=== PATIENT | male | born 1935 | race Caucasian/White ===

== ENCOUNTER → 2016-06-06 | Outpatient (CLI) | payer MEDICARE, BC ==
[~2016-06-06] MED LIST: AFRIN) (GENASAL15 ML NOSE; ALDACTONE25 MG PO; AMIODARONE HCL200 MG PO; AMOXICILLIN500 MG PO; ARTIFICIAL TEAR15 M1 OPHTH; ASPIR 8181 MG PO; ATROVENT I0.5 MG/2.5 INH; AUGMENTIN875 MG; AUGMENTIN875 MG PO; AVAPRO300 MG PO; B COMPLEX1 EACH PO; BACTRIM DS1 TAB PO; C-PAP; CARAFATE1 GM PO; CATAPRES-TTS0.1 MG TOP; CEFTIN500 MG PO; CLEOCIN HCL300 MG PO; CO Q-10100 MG PO; COREG25 MG PO; COUMADIN2.5 MG PO; COUMADIN5 MG PO; DELTASONE20 MG PO; DULCOLAX10 MG R; DULCOLAX5 MG PO; FLOMAX0.4 MG PO; IMDUR30 MG PO; IPRAT-ALBUT 0.5-3 ML INH; LASIX20 M1 PO; LASIX20 MG PO; LEXAPRO10 MG PO; LIORESAL10 MG FT; MIRALAX PO527 GM/BOT PO; MIRALAX17 GM PO; MUCOMYST 20200 MG/M1 PO; NEXIUM40 MG PO; NITROSTAT0.4 MG SL; NORVASC10 MG FT; NORVASC10 MG PO; NORVASC2.5 MG PO; NUVIGIL50 MG FT; OMEPRAZOLE40 MG PO; OMNICEF 300MG300 MG PO; PRAVACHOL20 MG PO; PROMETH-CODEIN 65 ML PO; PROVENTIL2.5 MG/0.5 INH; QUESTRAN PACKET4 GM FT; RANEXA ER500 MG PO; ROCEPHIN1 G1 IM; STOOL SOFTENER250 MG PO; TYLENOL325 MG FT; TYLENOL325 MG PO; XANAX0.25 M1 FT; ZITHROMAX500 MG PO; ZYLOPRIM100 MG PO
== END | disposition disaster alternative care site (69) ==
LOC: GRAD 12:49
DX: R05 Cough (principal); J47.9 Bronchiectasis, uncomplicated; J98.09 Other diseases of bronchus, not elsewhere classified

== ENCOUNTER → 2016-09-15 | Outpatient (CLI) | payer MEDICARE, BC ==
[2016-09-15 10:04] LABS: CPK 108 IU/L (35-332)
== END | disposition disaster alternative care site (69) ==
LOC: LNHI 09:43
PROVIDERS: Internal Medicine Interventional Cardiology
DX: I25.119 Atherosclerotic heart disease of native coronary artery with unspecified angina pectoris (principal); R07.89 Other chest pain

== ENCOUNTER 2016-09-23 13:45 | Emergency (ER) | payer MEDICARE, BC ==
--- NOTE | ~2016-09-23 | ER ---
PATIENT'S NAME: ALEJANDRA YODER [facility] AGE: 81 Y [address] ROOM: [place] [address] LOCATION: [facility] ADMIT DATE: 09/23/2016 ER/Outpatient Report DISCHARGE DATE: 09/23/2016 FAMILY PHYSICIAN: Amando Bryan MD ATTENDING PHYSICIAN: Armando Dawson Admission date and time are documented in the medical record. I saw the patient at 1400 hours. CHIEF COMPLAINT: Left lower anterior chest pain. HISTORY OF PRESENT ILLNESS: The patient is an 81-year-old male who had onset of left lower anterior chest pain around noon. Took 2 nitros did not help. Pain is worse when he takes a deep breath. Pain was rated about 6/10. He has been fighting bronchitis with a persistent cough for the past 1 to 2 weeks. No fever, chills, or sweats. He has been clammy from [id number]. No nausea, vomiting, or diarrhea. No dizziness, lightheadedness, syncope, or near syncope. No fall or trauma. No headache, eyes, ears, nose, throat, neck, or spine pain. No joint or muscle swelling, redness, or pain. No skin eruptions or rash. No abdominal pain. No back pain. No neck pain. Does have a history of diabetes. No other endocrine problems. Does have some peripheral neuropathy problems. He has had TIA. No psych issues. HOME MEDICATIONS: See attached medication list. ALLERGIES: TETANUS, VICODIN, RESTORIL, KEFLEX, AND LEXAPRO. SOCIAL HISTORY: Nonsmoker, nondrinker. SIGNIFICANT PAST MEDICAL HISTORY: Atherosclerotic ischemic heart disease with coronary artery disease, obstructive sleep apnea, near syncope, abdominal aortic aneurysm, paroxysmal atrial fibrillation, insulin-dependent diabetes mellitus type 2, gout, dyslipidemia, hypertension, myelodysplastic syndrome, peripheral neuropathy, degenerative osteoarthritis, degenerative joint disease, transient ischemic attack, venous insufficiency, benign prostatic hypertrophy, gout, remote tobacco abuse, and anxiety. OPERATIONS: Abdominal aortic aneurysm repair, appendectomy, carpal tunnel release, PATIENT'S NAME: ALEJANDRA YODER [facility] AGE: 81 Y [address] ROOM: [place] [address] LOCATION: [facility] ADMIT DATE: 09/23/2016 ER/Outpatient Report DISCHARGE DATE: 09/23/2016 FAMILY PHYSICIAN: Amando Bryan MD ATTENDING PHYSICIAN: Armando Dawson cholecystectomy, colonoscopy, esophagogastroduodenoscopy, cardiac catheterization with PTCA and stenting, elbow surgery, right femur surgery, bilateral inguinal herniorrhaphies, lumbar laminectomy, pacer placement, tonsillectomy, transurethral resection of the prostate, hand surgery, rectal surgery, and bilateral total hip arthroplasty with bilateral revisions. REVIEW OF SYSTEMS: All systems reviewed by me are negative with the exception of those discussed in history of present illness. PHYSICAL EXAMINATION: VITAL SIGNS: Temperature 97.8, tympanic, pulse 65, regular, respirations 20, blood pressure 131/66, and O2 sat on room air is 95%. HEAD: Normocephalic. EYES, EARS, NOSE, THROAT: Clear. Mucous membranes moist. NECK: No nuchal rigidity. No thyromegaly or cervical adenopathy. No tenderness. SPINE: Nontender. No deformity. LUNGS: Fairly good air flow. No rales, rhonchi, or wheezes. Coarse cough. HEART: Regular. Pulses are palpable. No chest wall or ribcage pain to palpation. ABDOMEN: Soft, nondistended, nontender. Good bowel tones. No organomegaly or abnormal mass palpable. No CVA tenderness. EXTREMITIES: No peripheral edema, cyanosis, or deformity. NEUROVASCULAR: Intact. SKIN: Clear. No skin eruptions or rash. LABORATORY DATA: Chest x-ray shows a slightly increase in heart size with some congestive failure pattern. We will review x-ray with the radiologist. EKG showed sinus rhythm. No acute ST elevation, ischemic change, or arrhythmia. White count was 4500, 72 segs, 5 bands, 10 lymphs, 13 monos, hemoglobin is 11 with hematocrit 32.2, and platelet count is 37,000. PTT is 26, pro-time is 12.6, INR 1.2. Pro-BNP was normal at 368. D-dimer was 4.49. We did go ahead and do a V/Q scan of the lungs, which was negative for PE. CMS was normal except for an elevated chloride of 111, low CO2 content of 18, elevated glucose of 167, elevated BUN of 44, elevated creatinine of 2.4, low GFR of 24. Magnesium was 2.6. CPK x2, 2 hours apart were normal. Mnwpt-pu-gbbs cardiac enzymes x2, 2 hours apart were normal. EMERGENCY DEPARTMENT COURSE: I did give the patient IV normal saline, fluids, and morphine for pain. I did start him on a nitroglycerin drip, which did not show much improvement in his pain. His pain just gradually got away. PATIENT'S NAME: ALEJANDRA YODER [facility] AGE: 81 Y [address] ROOM: [place] [address] LOCATION: [facility] ADMIT DATE: 09/23/2016 ER/Outpatient Report DISCHARGE DATE: 09/23/2016 FAMILY PHYSICIAN: Amando Bryan MD ATTENDING PHYSICIAN: Armando Dawson IMPRESSION: 1. Left lower anterior chest pain, etiology uncertain, but most likely pleuritic or inflammatory. 2. Thrombocytopenia. 3. Myelodysplastic syndrome. 4. Atherosclerotic ischemic heart disease with coronary artery disease. 5. Obstructive sleep apnea. 6. Insulin-dependent diabetes mellitus type 2. 7. Dyslipidemia. 8. Hypertension. 9. Peripheral neuropathy. 10. Venous insufficiency. 11. Remote tobacco abuse. 12. Anxiety. PLAN: The patient dismissed home. Observation. Activity as tolerated. Continue present home medications and care. Heating pad to sore areas of the chest area intermittently as needed. Follow up with personal physician in 3 to 4 days or sooner if needed. Return to the emergency room if needed. Discussion ensued with the patient concerning my findings and recommendations, he understands. ARMANDO DAWSON MD SDS/modl /[id number] d: 09/24/16 0050 t: 09/24/16 0613, OUTPATIENT REPORT
[2016-09-23 14:17] LABS: HEMATOCRIT 32.2 % (33.0-50.0); MCH 33.7 pg (27.0-34.0); MCHC 34.2 gm/dL (32.0-36.5); MCV 98.8 fl (83.0-98.0); MPV 12.8 fl (9.4-12.4); RBC 3.26 M/uL (3.50-5.50); RDW-CV 15.1 % (11.9-14.6); WBC 4.5 K/uL (4.0-11.0)
[2016-09-23 14:18] LABS: PLATELET COUNT 37 K/uL (150-450)
[2016-09-23 14:28] LABS: PROTIME 12.6 SECONDS (9.8-11.4); PTT 26 SECONDS (25-32)
[2016-09-23 14:37] LABS: ALBUMIN 4.7 gm/dL (3.5-5.0); ALK PHOS 80 IU/L (33-138); ALT 26 IU/L (12-78); ANION GAP 15.5 (10.0-19.0); AST 23 IU/L (10-40); BLOOD UREA NITROGEN 44 mg/dL (6-24); CALCIUM 8.7 mg/dL (8.5-10.5); CHLORIDE 111 mMol/L (96-110); CO2 18 mMol/L (22-32); CPK 136 IU/L (35-332); CREATININE 2.4 mg/dL (0.6-1.3); MAGNESIUM 2.6 mg/dL (1.8-2.6); POTASSIUM 4.5 mMol/L (3.7-5.1); SODIUM 140 mMol/L (135-145); TOTAL BILIRUBIN 0.8 mg/dL (0.0-1.5); TOTAL PROTEIN 7.8 g/dL (6.0-8.4)
[2016-09-23 14:59] LABS: ABSOLUTE NEUTROPHIL CT (ANC) 3.5 K/uL (1.4-9.0); BANDED NEUTROPHIL # 0.2 K/uL (0.0-0.1); BANDED NEUTROPHILS % 5 %; LYMPHOCYTE # 0.5 K/uL (0.8-4.0); LYMPHOCYTE % 10 %; MONOCYTE # 0.6 K/uL (0.0-1.0); SEGMENTED NEUTROPHIL # 3.2 K/uL (1.4-9.0); SEGMENTED NEUTROPHIL % 72 %
[2016-09-23 16:23] LABS: CPK 109 IU/L (35-332)
== END 2016-09-23 17:57 | disposition disaster alternative care site (69) ==
LOC: GMED 13:45
PROVIDERS: Emergency Medicine
DX: R07.89 Other chest pain (principal); D69.6 Thrombocytopenia, unspecified; I25.10 Atherosclerotic heart disease of native coronary artery without angina pectoris; I87.2 Venous insufficiency (chronic) (peripheral); D46.9 Myelodysplastic syndrome, unspecified; I10 Essential (primary) hypertension; I48.0 Paroxysmal atrial fibrillation; E11.9 Type 2 diabetes mellitus without complications; E78.5 Hyperlipidemia, unspecified; G62.9 Polyneuropathy, unspecified; M19.90 Unspecified osteoarthritis, unspecified site; G47.33 Obstructive sleep apnea (adult) (pediatric); N40.0 Benign prostatic hyperplasia without lower urinary tract symptoms; F41.9 Anxiety disorder, unspecified; Z90.89 Acquired absence of other organs; Z90.49 Acquired absence of other specified parts of digestive tract; Z98.890 Other specified postprocedural states; Z95.1 Presence of aortocoronary bypass graft; Z95.818 Presence of other cardiac implants and grafts; Z95.0 Presence of cardiac pacemaker; Z96.643 Presence of artificial hip joint, bilateral; Z90.79 Acquired absence of other genital organ(s); Z88.1 Allergy status to other antibiotic agents; Z88.5 Allergy status to narcotic agent; Z88.8 Allergy status to other drugs, medicaments and biological substances
CPT/HCPCS: A9539; A9540; J7030

== ENCOUNTER → 2016-10-23 | Outpatient (CLI) | payer MEDICARE, BC ==
--- NOTE | ~2016-10-23 | PUL ---
PATIENT'S NAME: ALEJANDRA YODER [facility] AGE: 81 Y [address] ROOM: [place] [address] LOCATION: [facility] ADMIT DATE: 10/23/2016 Pulmonary DISCHARGE DATE: FAMILY PHYSICIAN: MARILEE JOHNS MD ATTENDING PHYSICIAN: SARAH WHALEN NAME OF PROCEDURE: Sleep study PROCEDURE DATE: 10/23/16 TECH: HANK Aquino [place]: [facility] [place] [id number] TECHNICAL PARAMETERS: The patient was studied using International 10/20 measuring system. While the patient was studied, there was continuous monitoring of EEG (8 leads), EOG (2 leads), EKG (3 leads), submental EMG (3 leads), tibial (4 leads), respiratory inductive plethysmography (RIP) for thoracic and abdominal effort, oral and nasal airflow with a thermocouple and pressure transducer, and oximetry. The surveying technician also performed visual and auditory observations noting things like body position, patient's status, breath sounds, artifact, snoring level and patient comments. Continuous sound was monitored using a 2-way speaker system and video monitoring was performed using an infrared camera. Review of the entire study was performed epoch by epoch utilizing a single epoch and multiple epoch capability sleep system. MEDICAL HISTORY: The patient is an 81-year-old with daytime sleepiness and snoring. He has a history of obstructive sleep apnea. This study was done to titrate CPAP. SLEEP STAGE SUMMARY: The patient was studied for 456 minutes of which he slept 258 minutes. He fell asleep in 25 minutes and slept for 57% of the night. Sleep architecture reveals a decline in slow wave and REM sleep. RESPIRATORY SUMMARY: Oxygen saturations range from 88-94%. CPAP was initiated at 10 cm and titrated to 16cm with good control of the respiratory events. EKG SUMMARY: No significant dysrhythmias were noted. LIMB MOVEMENT SUMMARY: No clinically relevant periodic limb movements were noted. SUMMARY: Obstructive sleep apnea responsive to CPAP at 16 cm. PLAN: The patient will receive results from the ordering provider. PATIENT'S NAME: ALEJANDRA YODER [facility] AGE: 81 Y [address] ROOM: [place] [address] LOCATION: [facility] ADMIT DATE: 10/23/2016 Pulmonary DISCHARGE DATE: FAMILY PHYSICIAN: MARILEE JOHNS MD ATTENDING PHYSICIAN: SARAH WHALEN PEGGY CUBA MD /[id number] dtt: 11/08/16 1000 Lissette David E. dtd: 10/25/16 1133
== END | disposition disaster alternative care site (69) ==
LOC: GSLP 09-19 21:00
DX: G47.33 Obstructive sleep apnea (adult) (pediatric) (principal); I50.9 Heart failure, unspecified; I48.91 Unspecified atrial fibrillation; Z86.79 Personal history of other diseases of the circulatory system

== ENCOUNTER → 2016-11-15 | Outpatient (CLI) | payer MEDICARE, BC ==
[2016-11-15 15:05] LABS: HEMATOCRIT 31.4 % (33.0-50.0); HEMOGLOBIN 10.5 g/dL (11.0-16.0); MCH 33.7 pg (27.0-34.0); MCHC 33.4 gm/dL (32.0-36.5); MCV 100.6 fl (83.0-98.0); MPV 12.6 fl (9.4-12.4); RBC 3.12 M/uL (3.50-5.50); RDW-CV 15.8 % (11.9-14.6); WBC 2.2 K/uL (4.0-11.0)
[2016-11-15 15:08] LABS: PLATELET COUNT 30 K/uL (150-450)
[2016-11-15 15:18] LABS: ANION GAP 11.1 (10.0-19.0); BLOOD UREA NITROGEN 16 mg/dL (6-24); CALCIUM 8.8 mg/dL (8.5-10.5); CHLORIDE 112 mMol/L (96-110); CO2 23 mMol/L (22-32); CPK 147 IU/L (35-332); CREATININE 1.4 mg/dL (0.6-1.3); POTASSIUM 4.1 mMol/L (3.7-5.1); SODIUM 142 mMol/L (135-145)
[2016-11-15 15:46] LABS: ABSOLUTE NEUTROPHIL CT (ANC) 1.3 K/uL (1.4-9.0); BANDED NEUTROPHILS % 2 %; LYMPHOCYTE # 0.5 K/uL (0.8-4.0); LYMPHOCYTE % 22 %; MONOCYTE # 0.4 K/uL (0.0-1.0); SEGMENTED NEUTROPHIL # 1.3 K/uL (1.4-9.0); SEGMENTED NEUTROPHIL % 58 %
== END ==
LOC: LNHI 15:01
PROVIDERS: Internal Medicine Interventional Cardiology
DX: I25.119 Atherosclerotic heart disease of native coronary artery with unspecified angina pectoris (principal); I50.22 Chronic systolic (congestive) heart failure; I48.0 Paroxysmal atrial fibrillation; I71.4 Abdominal aortic aneurysm, without rupture